=== PATIENT | female | born 1930 | race Caucasian/White ===

== ENCOUNTER → 2016-09-13 | Outpatient (CLI) | payer MEDICARE | END | disposition home or self-care (01) | LOC: PCVCCLINIC 11:22 | PROVIDERS: ATTEND Internal Medicine Cardiovascular Disease | DX: I25.10 Atherosclerotic heart disease of native coronary artery without angina pectoris (principal); I10 Essential (primary) hypertension; E78.00 Pure hypercholesterolemia, unspecified; E11.9 Type 2 diabetes mellitus without complications; I25.2 Old myocardial infarction; I35.1 Nonrheumatic aortic (valve) insufficiency; J45.909 Unspecified asthma, uncomplicated; E03.9 Hypothyroidism, unspecified; K21.9 Gastro-esophageal reflux disease without esophagitis; F32.9 Major depressive disorder, single episode, unspecified; Z79.82 Long term (current) use of aspirin; Z90.710 Acquired absence of both cervix and uterus; Z87.891 Personal history of nicotine dependence; Z88.0 Allergy status to penicillin; Z88.1 Allergy status to other antibiotic agents; Z88.8 Allergy status to other drugs, medicaments and biological substances | CPT/HCPCS: 80061; G0463; 93005 ==

== ENCOUNTER → 2016-11-04 | Outpatient (CLI) | payer MEDICARE ==
--- NOTE | 2016-11-04 12:26 | PCVCIMAG ---
APPROVED REPORT Study performed: 11/04/2016 09:10:03 EXAM: Comprehensive 2D, Doppler, and color-flow Echocardiogram Patient Location: Echo lab BSA: 1.66 HR: 81 bpmBP: 136/64 mmHg Other Information Study Quality: Adequate Indications Hypertension/HDD CAD, DC, Stent, Diabetes, Aortic Insufficiency. 2D Dimensions LVEF(%): 52.41 (>50%) IVSd: 7.39 (7-11mm)LVOT Diam: 16.79 (18-24mm) LVDd: 36.88 mm PWd: 7.35 (7-11mm)Ascending Ao: 29.67 (22-36mm) LVDs: 27.18 (25-40mm) Left Atrium: 26.12 (27-40mm) Aortic Root: 26.13 mm LV Single Plane 2CH: 40.75 %Joe's LVEF: 52.41 % Volumes Left Atrial Volume (Systole) Single Plane 4CH: 16.07 mLSingle Plane 2CH: 14.12 mL LA ESV Index: 10.00 mL/m2 Aortic Valve AoV Peak Torito.: 1.36 m/s AO Peak Gr.: 7.37 mmHgLVOT Max P.14 mmHg LVOT Max V: 0.89 m/s DANICA Vmax: 1.44 cm2 AI Vmax: 3.67 m/s AI [place]: 1.98 m/s2 AI PHT: 536.87 ms Pulmonary Valve PV Peak Gr.: 1.99 mmHg Tricuspid Valve TR Peak Torito.: 2.74 m/s TR Peak Gr.: 30.00 mmHg Left Ventricle The left ventricle is normal size. Mild hypokinesis apical and anterior angelo. There is normal left ventricular wall thickness. Left ventricular systolic function is mildly reduced. The left ventricular ejection fraction is within the normal range. LVEF is 45-50%. Right Ventricle The right ventricle is normal size. The right ventricular systolic function is normal. Atria The left atrium size is normal. The right atrium size is normal. Aortic Valve The aortic valve is normal in structure. Mild aortic regurgitation. Mitral Valve The mitral valve is normal in structure. Mild to moderate mitral regurgitation. No evidence of mitral valve stenosis. Tricuspid Valve The tricuspid valve is normal in structure. Mild to moderate tricuspid regurgitation. Pulmonary artery pressure is 37mmhg. Pulmonic Valve The pulmonary valve is normal in structure. Trace pulmonic regurgitation. Great Vessels The aortic root is normal in size. IVC is normal in size and collapses with >50% inspiration Pericardium There is no pericardial effusion. <Conclusion> The left ventricle is normal size. There is normal left ventricular wall thickness. LVEF is 45-50%. The right ventricle is normal size. The left atrium size is normal. The aortic valve is normal in structure. Mild to moderate mitral regurgitation. Mild to moderate tricuspid regurgitation. Pulmonary artery pressure is 37mmhg. There is no pericardial effusion.
--- NOTE | 2016-11-04 14:28 | PCVCIMAG ---
APPROVED REPORT Exam: Nuclear Stress Test Indication: CAD, Fatigue Patient Location: Out-Patient Stress Nurse: Joycelyn Brandon RN, Lesli Gurrola RN [place] Tech:Soto Mandujano NMTCB Ht: 5 ft 3 in Wt: 130 lbs BSA: 1.61 m2 HR: 67 bpm BP: 164/72 mmHg BMI: 23.0 Rhythm: NSR Medical History Medical History: Age, Hyperlipidemia, HTN, CAD, MA, DM, Medications: Metoprolol (held 24 hours) Effient, Atorvastatin, Benicar-HCT, Synthroid,Clonazepam Allergies: Many allergies - none related to test Previous Cardiac Procedures: PCI 1998, Recent emergent PCI Pretest Chest Pain Characteristics: No chest pain Exercise History: Sedentary NM EXAM: Myocardial Perfusion REST/STRESS Imaging Protocol: Rest Tc-99m/Stress Tc-99m 1 day Resting Data Rest SPECT myocardial perfusion imaging was performed in supine position 45 minutes following the intravenous injection of 9.4 mCi of Tc-99m Sestamibi. Time of rest injection: 0945 Date: 11/04/2016 Pharmacologic Stress Pharmacologic stress test was performed by injecting Regadenoson 0.4 mg IV push followed by the intravenous injection of 25.1 mCi of Tc-99m Sestamibi. Time of stress injection: 1115 Date: 11/04/2016 The images were gated to evaluate regional wall motion and calculate left ventricular ejection fraction. Study Quality Study: Good Study Data Post stress, the left ventricular ejection was 64%.. SSS: 0 SRS: 6 SDS: 0 TID = 1.03. Perfusion No evidence of stress induced ischemia or prior myocardial infarction. Wall Motion Normal left ventricular size and function with no regional wall motion abnormalities. Nuclear Conclusion No evidence of stress induced ischemia or prior myocardial infarction. Normal left ventricular size and function with no regional wall motion abnormalities. Post stress, the left ventricular ejection was 64%.. No prior study available for comparison. Interpreted by: Olu William MD Electronically Approved: 11/04/2016 14:09:02 Stress Test Details Stress Test: Pharmacologic stress testing performed using 0.4 mg of regadenoson per 5 mL given IV over 10 seconds. Reason for pharmacologic stress test: physical limitation. Reversal agent Aminophyline mg, given intravenously for . HR Resting HR: 67 bpmMax Heart Rate (APMHR): 132 bpm Max HR Achieved: 100 bpmTarget HR (85% APMHR): 112 bpm % of APMHR: 75 Recovery HR: 78 bpm BP Resting BP: 164/72 mmHg Max BP: 147/65 mmHg ECG Resting ECG: Sinus Rhythm Stress ECG: Sinus Tachycardia, Sinus Rhythm, NSSTT changes ST Change: Mild ST depression Maximum ST Deviation: 0.7 mm Arrhythmia: None Recovery ECG: Sinus Rhythm Clinical Reason for Termination: Completed protocol Stress Symptoms: Dyspnea, Chest Heaviness, Nausea Exercise duration: min 55 sec Symptoms resolved during recovery with aminophylline. Stress ECG Conclusion ECG: Non-ischemic <Conclusion> ECG: Non-ischemic
== END | disposition home or self-care (01) ==
LOC: PCVCIMAG 08:55
PROVIDERS: ATTEND Internal Medicine Cardiovascular Disease
DX: I08.3 Combined rheumatic disorders of mitral, aortic and tricuspid valves (principal); I25.10 Atherosclerotic heart disease of native coronary artery without angina pectoris; I10 Essential (primary) hypertension; I25.2 Old myocardial infarction; E11.9 Type 2 diabetes mellitus without complications; E78.5 Hyperlipidemia, unspecified; K52.9 Noninfective gastroenteritis and colitis, unspecified; Z95.5 Presence of coronary angioplasty implant and graft
CPT/HCPCS: 78452; 93017; 93306; A9500

== ENCOUNTER → 2017-10-24 | Outpatient (CLI) | payer MEDICARE | END | disposition home or self-care (01) | LOC: PCVCCLINIC 14:28 | DX: I25.10 Atherosclerotic heart disease of native coronary artery without angina pectoris (principal); I35.1 Nonrheumatic aortic (valve) insufficiency; I10 Essential (primary) hypertension; E11.9 Type 2 diabetes mellitus without complications; K21.9 Gastro-esophageal reflux disease without esophagitis; Z88.0 Allergy status to penicillin; Z87.891 Personal history of nicotine dependence; Z79.899 Other long term (current) drug therapy | CPT/HCPCS: 80061; 93005; G0463 ==